=== PATIENT | female | born 1950 | race Caucasian/White ===

== ENCOUNTER → 2017-06-05 | Outpatient (CLI) | payer MEDICARE ==
--- NOTE | 2017-06-05 14:34 | KCIC ---
MRI ABDOMEN W/O CONTRAST: MRCP Clinical Indication: Left upper quadrant abdominal pain. Exacerbated by eating. Abnormal outside ultrasound of gallbladder Comparison: None. Technique: Multiplanar multiple pulse sequence imaging of the abdomen was performed, including T2 thin slab images through the biliary tree, without contrast. 3-D volume rendering images constructed to better evaluate the biliary tree anatomy. Findings: Common hepatic duct, common bile duct and visualized portions of the pancreatic duct are patent, without intraluminal filling defect or acute truncation. There is a 2.7 by 2.3 cm gallstone. Gallstone is positioned dependently. Suggest comparison with outside ultrasound. No gallbladder wall thickening or pericholecystic fluid. There is mild fatty infiltration of the liver with focal fatty sparing along the gallbladder fossa. There is a 1.1 cm left adrenal nodule that demonstrates marked signal dropout on the out of phase images compatible with an adrenal adenoma. There is a 1.3 cm round nodule in the anterior left lung base. Centrally the nodule contains lower signal intensity and may be a calcified granuloma but is not well characterized by MR. There is a 4.3 cm right upper pole renal cyst. There are a few other tiny cortical cysts of the right kidney. There is no hydronephrosis. Spleen size normal. Pancreas appears homogeneous. Right adrenal gland is normal. No evidence of bowel obstruction. No abdominal ascites is seen. IMPRESSION: 1. Biliary tree is normal. 2. Cholelithiasis. 3. Mild fatty infiltration of the liver. 4. Small left adrenal adenoma. 5. There is a 1.3 cm round nodule in the anterior left lung base. If comparison chest CT or radiographs are not available, recommend further evaluation with CT chest. Electronically signed by: Memo Verdugo MD (06/05/2017 2:31 PM) [id number]
== END | disposition home or self-care (01) ==
LOC: KCIC MRI 08:32
PROVIDERS: ATTEND Internal Medicine Gastroenterology
DX: K80.20 Calculus of gallbladder without cholecystitis without obstruction (principal); K76.0 Fatty (change of) liver, not elsewhere classified; D35.02 Benign neoplasm of left adrenal gland; R91.1 Solitary pulmonary nodule
CPT/HCPCS: 74181

== ENCOUNTER → 2017-06-11 | Outpatient (CLI) | payer MEDICARE, BC ==
[~2017-06-11] MED LIST: ASCO-78 PO; BETA2500 PO; FLAX10003 PO; GARL100T2 PO; GLUC100018 PO; IOHEXOL 300 MG/ML 100ML VIAL. IV ONE; PARO20TA3 PO; PYRI25TA2 PO; VERA240C2 PO
--- NOTE | 2017-06-11 12:21 | KCIC ---
CT CHEST W/CONTRAST dated 06/11/2017 11:30 AM Indication: Lung nodule Comparison: There is no previous similar exam available, correlation made with June 06, 2017 MRI abdomen Technique: After bolus of intravenous contrast, CT imaging was performed of the[chest], multiplanar reconstruction images submitted. One or more of the following individualized dose reduction techniques were utilized for this examination: 1. Automated exposure control 2. Adjustment of the mA and/or kV according to patient size 3. Use of iterative reconstruction technique. Contrast: 95 cc Omnipaque 300 Findings: MRI findings correspond with a mostly calcified 1.7 x 1.7 x 1.5 cm nodule of the left lower lobe. There is a tiny 0.3 cm noncalcified right middle lobe nodule. There is no abnormal pericardial or pleural fluid or pneumothorax. Major airways are patent. There is somewhat ectatic ascending thoracic aorta up to 3.7 cm, no intraluminal flap. There are some small calcified nodes, no enlarged noncalcified nodes of the chest. There is hypodense lesion of the superior right kidney up to 4.3 cm, compatible with a cyst. There is a small 1.1 cm left adrenal nodule, characteristics of adenoma on MRI exam. IMPRESSION: 1. There is mostly calcified left lower lobe nodule corresponding with the MRI findings. There is a tiny 0.3 cm incidental right middle lobe nodule. If there are low risk factors for neoplasm, no additional follow-up is needed, optional 12 month follow-up if increased risk factors for neoplasm as per revised Fleischner guideline. 2. There is right renal cyst. There is small left adrenal adenoma as seen on MRI. 3. There is slightly ectatic ascending thoracic aorta up to 3.7 cm. Electronically signed by: Elliot Rodriguez MD (06/11/2017 12:18 PM) [email or web address]
== END | disposition home or self-care (01) ==
LOC: KCIC CT 11:10
PROVIDERS: ATTEND Internal Medicine Gastroenterology
DX: D35.02 Benign neoplasm of left adrenal gland (principal); N28.1 Cyst of kidney, acquired
CPT/HCPCS: 71260; 82565; Q9967